=== PATIENT | male | born 1980 | race Caucasian/White ===

== ENCOUNTER → 2021-07-18 07:34 | Outpatient (CLI) | payer OTHER, SELFPAY ==
[2021-07-21 16:32] LABS: QuantiFERON Mitogen Value >10.00 IU/mL (.); QuantiFERON TB Gold Plus Negative (Negative); QuantiFERON TB1 Ag Value 0.01 IU/mL (.); QuantiFERON TB2 Ag Value 0.01 IU/mL (.)
== END ==
PROVIDERS: Referring Provider Family Medicine; Visit Provider Family Medicine
DX: Z11.1 Encounter for screening for respiratory tuberculosis (principal)
CPT/HCPCS: 36415; 86480

== ENCOUNTER → 2025-02-11 08:30 | Outpatient (CLI) | payer OTHER, SELFPAY ==
--- NOTE | 2025-02-11 08:32 | DI.US.S_ITS ---
PROCEDURE: US SOFT TISSUE HEAD AND NECK INDICATIONS: LEFT SCALP LUMP - POSTERIOR TO LEFT EAR TECHNIQUE: Real-time scanning was performed of the neck region of interest, with image documentation. COMPARISON: None. FINDINGS: Heterogeneous solid-appearing soft tissue mass corresponding to the palpable abnormality measuring 3.6 x 2.6 x 1.1 cm. Minimal internal vascularity. Commonly soft tissue masses in this location represent enlarged lymph nodes however does not have the typical appearance of a lymph node. Follow-up is needed IMPRESSION: Nonspecific soft tissue mass corresponding to the palpable abnormality. Differential would include both benign and malignant etiologies. Continued follow-up is needed. Dictated by: Rick Elam [facility] Interpreted: Manpreet Rodriguez MD on 02/11/2025 at 10:26 Transcribed by: BENNIE on 02/11/2025 at 10:29 Approved by: Manpreet Rodriguez M.D. on 02/19/2025 at 8:46
== END ==
PROVIDERS: PCP Family Medicine; Referring Provider Family Medicine; Visit Provider Family Medicine
DX: R22.1 Localized swelling, mass and lump, neck (principal)
CPT/HCPCS: 76536

== ENCOUNTER → 2025-10-29 07:57 | Outpatient (CLI) | payer OTHER, SELFPAY ==
[2025-10-29 08:55] LABS: Influenza A - CEPHEID Flu A NEGATIVE (NEGATIVE); Influenza B - CEPHEID Flu B NEGATIVE (NEGATIVE)
[2025-10-29 08:58] LABS: COVID-19 CEPHEID 4-PLEX PCR Negative (Negative)
== END ==
PROVIDERS: PCP Family Medicine; Visit Provider Chiropractor
DX: R05.9 Cough, unspecified (principal); R50.9 Fever, unspecified; R53.81 Other malaise; R53.83 Other fatigue
CPT/HCPCS: 87637

== ENCOUNTER → 2025-10-29 08:20 | Outpatient (CLI) | payer OTHER, SELFPAY ==
--- NOTE | 2025-10-29 08:21 | DI.RAD.S_ITS ---
PROCEDURE: XR CHEST 2V INDICATIONS: r/o pneumonia TECHNIQUE: 2 views of the chest were acquired. COMPARISON: None. FINDINGS: Surgical changes and devices: None. Lungs and pleura: Focal consolidation in the right lower lobe No pleural effusions or pneumothorax. Mediastinum: Mediastinal contours are normal. Heart size is normal. Bones and chest wall: No suspicious bony abnormalities. Soft tissues appear unremarkable. IMPRESSION: Focal consolidation in the right lower lobe concerning for pneumonia. Dictated by: Rodo Morfin M.D. on 10/29/2025 at 9:01 Approved by: Rodo Morfin M.D. on 10/29/2025 at 9:04
== END ==
PROVIDERS: PCP Family Medicine; Referring Provider Family Medicine; Visit Provider Chiropractor
DX: R05.9 Cough, unspecified (principal); R50.9 Fever, unspecified; R53.81 Other malaise; R53.83 Other fatigue
CPT/HCPCS: 71046; 87637